=== PATIENT | male | born 1965 | race African-American/Black ===

== ENCOUNTER 2018-04-23 12:31 | Inpatient (IN) | payer MEDICAID ==
[2018-04-23] MEDS: ASPIRIN 81 MG TAB PO (13:08)
[2018-04-23] MEDS: NITROGLYCERIN (SL) 0.4 MG TAB SL ×3 (13:08→13:18)
[2018-04-23] MEDS: NITROGLYCERIN 2% 1 GM OINT PKT TD (13:10)
[2018-04-23 13:20] LABS: ADD MAN DIFF? NO
[2018-04-23 13:22] LABS: WHITE BLOOD COUNT 5.4 10^3/ul (4.8-10.8)
[2018-04-23 13:22] LABS: BASOPHILS % 0.6 % (0.0-2.0); EOSINOPHILS # 0.1 10^3/ul (0.0-0.5); HEMATOCRIT 39.4 % (42.0-52.0); HEMOGLOBIN 13.5 g/dl (14.0-18.0); LYMPHOCYTES # 1.9 10^3/ul (0.8-2.9); LYMPHOCYTES % 35.1 % (15.0-51.0); MEAN CORPUSCULAR HEMOGLOBIN 28.8 pg (29.0-33.0); MEAN CORPUSCULAR HGB CONC 34.3 g/dl (32.0-37.0); MONOCYTE # 0.5 10^3/ul (0.3-0.9); MONOCYTES % 9.9 % (0.0-11.0); NEUTROPHIL # 2.8 10^3/ul (1.6-7.5); NEUTROPHILS % 52.2 % (39.0-77.0); PLATELET COUNT 178 10^3/UL (140-415); RED BLOOD COUNT 4.69 10^6/ul (4.70-6.10); RED CELL DISTRIBUTION WIDTH 14.6 % (11.5-14.5)
[2018-04-23] MEDS: ONDANSETRON 4 MG INJ IV (13:27)
[2018-04-23] MEDS: morphine 4 MG/ML VIAL IV (13:28)
[2018-04-23 13:38] LABS: ANION GAP 12 (8-16); BLOOD UREA NITROGEN 6 mg/dl (7-20); CALCIUM 9.1 mg/dl (8.4-10.2); CARBON DIOXIDE 27 mmol/L (21-31); CHLORIDE 107 mmol/L (97-110); CREATININE 0.78 mg/dl (0.61-1.24); GLUCOSE 103 mg/dl (70-220); SODIUM 142 mmol/L (135-144)
[2018-04-23 13:50] LABS: TROPONIN-I 0.019 ng/ml (0.000-0.120)
[2018-04-23] MEDS ORDERED: NACL 0.9% 3 ML SYG IV (15:00)
[2018-04-23] MEDS ORDERED: ONDANSETRON 4 MG INJ IV (15:00)
[2018-04-23] MEDS ORDERED: ACETAMINOPHEN 325 MG TAB PO (15:00)
[2018-04-23] MEDS: NIFEdipine (XL) 30 MG TAB PO (15:48)
[2018-04-23] MEDS: ACETAMINOPHEN 325 MG TAB PO (15:49)
[2018-04-23 16:56] LABS: CHOL/HDL RATIO 4.8 RATIO; HDL CHOLESTEROL 38 mg/dl (28-71); LDL CHOLESTEROL,CALCULATED 103 mg/dl; TRIGLYCERIDES 212 mg/dl (0-149)
[2018-04-23 16:56] LABS: CHOLESTEROL 183 mg/dl (100-200)
[2018-04-23 18:20] LABS: B-TYPE NATRIURETIC PEPTIDE 24 PG/ML (0-125)
[2018-04-23] MEDS: CHLORTHALIDONE 25 MG TAB PO (18:35)
[2018-04-23 18:42] LABS: CREATINE KINASE 219 IU/L (23-200)
[2018-04-23 18:56] LABS: CK INDEX 0.7
[2018-04-23 19:03] LABS: CK-MB 1.49 ng/ml (0.0-2.4); TROPONIN-I < 0.012 ng/ml (0.000-0.120)
[2018-04-23] MEDS: hydrALAzine 20 MG INJ IV (20:12)
[2018-04-23] MEDS: ATORVASTATIN 40 MG TAB PO (20:12)
[2018-04-24 01:25] LABS: CREATINE KINASE 214 IU/L (23-200)
[2018-04-24 01:39] LABS: CK INDEX 0.6
[2018-04-24 01:40] LABS: TROPONIN-I < 0.012 ng/ml (0.000-0.120)
[2018-04-24 06:56] LABS: ANION GAP 13 (8-16); BLOOD UREA NITROGEN 10 mg/dl (7-20); CALCIUM 9.2 mg/dl (8.4-10.2); CARBON DIOXIDE 29 mmol/L (21-31); CHLORIDE 103 mmol/L (97-110); CREATININE 0.85 mg/dl (0.61-1.24); GLUCOSE 116 mg/dl (70-220); MAGNESIUM 1.9 mg/dl (1.7-2.5); POTASSIUM 3.9 mmol/L (3.5-5.1); SODIUM 141 mmol/L (135-144)
[2018-04-24 08:14] LABS: HEMOGLOBIN A1C 6.1 % (0-5.9)
[2018-04-24] MEDS: CHLORTHALIDONE 25 MG TAB PO (08:40)
[2018-04-24] MEDS: ENOXAPARIN 40 MG/0.4 ML SYG SC (08:41)
[2018-04-24] MEDS: ATORVASTATIN 40 MG TAB PO (20:43)
[2018-04-25] MEDS: ENOXAPARIN 40 MG/0.4 ML SYG SC (09:00)
[2018-04-25] MEDS: CHLORTHALIDONE 25 MG TAB PO (09:00)
[2018-04-25] MEDS: REGADENOSON 0.4 MG/5 ML SYG (10:10)
[2018-04-25] MEDS ORDERED: hydrALAzine 20 MG INJ IV (14:00)
[2018-04-25 15:13] LABS: INR 0.95; PROTIME 12.8 Sec (11.9-14.9)
[2018-04-25 15:14] LABS: PARTIAL THROMBOPLASTIN TIME 27.5 Sec (25.0-35.0)
[2018-04-25] MEDS: ACETAMINOPHEN 325 MG TAB PO (18:00)
[2018-04-25] MEDS: ATORVASTATIN 40 MG TAB PO (21:33)
[2018-04-26] MEDS: ENOXAPARIN 40 MG/0.4 ML SYG SC (09:00)
[2018-04-26] MEDS: CHLORTHALIDONE 25 MG TAB PO (09:10)
== END 2018-04-26 12:56 | disposition home or self-care (01) | DRG 313 ==
LOC: E/R 12:31 → MS4 14:33
DX: R07.9 Chest pain, unspecified (principal); G95.29 Other cord compression; E66.9 Obesity, unspecified; Z68.34 Body mass index [BMI] 34.0-34.9, adult; Z59.0 Homelessness; M48.02 Spinal stenosis, cervical region; R20.2 Paresthesia of skin
CPT/HCPCS: 36415; 70553; 71045; 72141; 78452; 80048; 80061; 82550; 82553; 83036; 83735; 83880; 84484; 85025; 85610; 85730; 93005; 93017; 93306; 93970; 96374; 96375; 99285-25; G0378